=== PATIENT | male | born 1980 | race Two or more races ===

== ENCOUNTER 2020-12-10 21:08 | Emergency (ER) | payer SELFPAY ==
[~2020-12-10] VITALS: Ht 177.8 cm; Wt 74.0 kg
[2020-12-10 21:09] VITALS: BP 0/0
== END 2020-12-10 21:30 | disposition left against medical advice (07) ==
LOC: ER 21:08
DX: Z53.21 Procedure and treatment not carried out due to patient leaving prior to being seen by health care provider (principal)